=== PATIENT | female | born 1990 | race Asian ===

== ENCOUNTER 2017-04-15 01:26 | Emergency (ER) | payer SELFPAY ==
[~2017-04-15] VITALS: Ht 162.6 cm; Wt 56.8 kg
[~2017-04-15 01:26] MED LIST: [UNRECOGNIZED DRUG - REMARK]
[2017-04-15 01:48] LABS: BASO % 0.3 % (0.0-2.0); EOS % 0.4 % (0-4.0); GRAN # 4.3 (1.4-6.5); GRAN % 59.3 % (42.2-75.2); HEMATOCRIT 38.1 % (37.0-47.0); HEMOGLOBIN 12.4 g/dl (12.5-16.0); LYMPH # 2.3 (1.2-3.4); LYMPH % 32.5 % (20.0-51.0); MEAN CELL VOLUME 92 fl (80.0-100.0); MEAN CORPUSCULAR HEMOGLOBIN 30 pg (27.0-31.0); MEAN CORPUSCULAR HGB CONC 33 g/dl (33.0-37.0); MEAN PLATELET VOLUME 11.6 fl (7.4-10.4); MONO # 0.5 (0.1-0.6); MONO % 7.4 % (1.7-9.3); PLATELET COUNT 187 K/mm3 (130-400); RED BLOOD COUNT 4.14 M/mm3 (4.10-5.30); REDCELL DISTRIBUTION WIDTH-CV 13.1 % (11.5-14.5)
[2017-04-15 02:00] LABS: ALBUMIN 4.4 gm/dL (3.5-5.0); BILIRUBIN,TOTAL 0.3 mg/dL (0.0-1.0); CALCIUM 8.4 mg/dL (8.4-10.2); CREATININE, serum 0.55 mg/dL (0.52-1.25); TOTAL PROTEIN 6.9 gm/dL (6.4-8.2)
[2017-04-15 02:16] LABS: POTASSIUM 2.9 mmol/L (3.4-5.0)
[2017-04-15 08:52] VITALS: BP 92/60; PULSE 67
== END 2017-04-15 09:43 | disposition home or self-care (01) ==
LOC: COL.ER 01:26
PROVIDERS: Physician Assistant
DX: F10.120 Alcohol abuse with intoxication, uncomplicated (principal); Y90.8 Blood alcohol level of 240 mg/100 ml or more
CPT/HCPCS: J2405; J3480; J7030